=== PATIENT | female | born 1980 | race Two or more races ===

== ENCOUNTER 2017-09-07 09:19 | Emergency (ER) | payer SELFPAY ==
[2017-09-07 09:32] VITALS: RESP 18
[2017-09-07] MEDS ORDERED: DIAZEPAM 10 MG/2 ML SYR IVP ONE (09:48)
[2017-09-07] MEDS ORDERED: ONDANSETRON 4 MG/2 ML VIAL IVP ONE (09:48)
[2017-09-07] MEDS ORDERED: NS 500 ML IV ONE (09:52)
--- NOTE | 2017-09-07 09:52 | EDPHY ---
H & P Stated Complaint: dizziness Time Seen by Provider: 09/07/17 09:36 HPI/ROS: CHIEF COMPLAINT: Dizziness HISTORY OF PRESENT ILLNESS: This is a healthy immunocompetent 37-year-old female who presents with over 12 hr of "dizziness ". She describes the sensation as "the room spinning ". This came on abruptly yesterday when she flopped backwards on to a couch. Any movement of her head brings on this spinning sensation. She had 1 bout of vomiting this morning. She does not have disequilibrium. She denies hearing change, tinnitus, and ear pain. She does not have headache and has not had fever. No numbness or weakness. REVIEW OF SYSTEMS: A ten point review of systems was performed and is negative with the exception of the items mentioned in the HPI. 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 No tobacco products. Occasional alcohol use. General Appearance: Alert. Vital signs reviewed. Eyes: Pupils equal and round, no conjunctival injection, no discharge. Anicteric. ENT, Mouth: Mucous membranes are slightly dry, no oropharyngeal erythema or edema. Neck: No lymphadenopathy, supple. No carotid bruits. Respiratory: Lungs are clear to auscultation; no wheezes, rales, or rhonchi. Cardiovascular: Regular rate and rhythm; no murmur, rub, or gallop. Gastrointestinal: Abdomen is soft and nontender, no masses or organomegaly, bowel sounds normal. Skin: Warm and dry, no rashes on exposed skin, normal color. Back: Nontender to palpation over the thoracolumbar spine. Extremities: No lower extremity edema, no calf tenderness or swelling. Neurological: Alert and oriented. Sitting with her head straight forward, not turning her head side to side. Cranial nerves II through XII are examined and are intact (visual acuity not tested). No nystagmus noted. Strength is 5 over 5 bilaterally with testing of all major motor groups. Sensation is intact to light touch over all 4 extremities. Deep tendon reflexes are 2+ in the biceps and knees bilaterally. Gait is normal. [id number] is performed accurately. Psychiatric: Normal affect. - Personal History LMP (Females 10-55): 22-28 Days Ago Current Tetanus Diphtheria and Acellular Pertussis (TDAP): Yes - Medical/Surgical History Hx Asthma: No Hx Chronic Respiratory Disease: No Hx Diabetes: No Hx Cardiac Disease: No Hx Renal Disease: No Hx Cirrhosis: No Hx Alcoholism: No Hx HIV/AIDS: No Hx Splenectomy or Spleen Trauma: No Other PMH: low thyroid. lip cancer cell removed - Social History Smoking Status: Never smoked Constitutional: Initial Vital Signs Temperature (C) 36.5 C 09/07/17 09:27 Heart Rate 76 09/07/17 09:27 Respiratory Rate 18 09/07/17 09:27 Blood Pressure 113/67 09/07/17 09:27 O2 Sat (%) 97 09/07/17 09:27 O2 Delivery Mode Room Air Allergies/Adverse Reactions: No Known Allergies Allergy (Unverified 09/07/17 09:27) Home Medications: Medication Instructions Recorded Meclizine HCl 25 mg PO Q6-8PRN PRN #10 tablet 09/07/17 Ondansetron Odt [Zofran Odt 4 mg 4 mg PO Q4 PRN #10 tab 09/07/17 (RX)] Medical Decision Making ED Course/Re-evaluation: History and physical suggestive of benign peripheral vertigo. Spinning sensation is brought on by head movement. Normal neurologic exam. I do not suspect a central etiology. She will be given 500 mL normal saline IV, Valium 2 mg IV, and Zofran 4 mg IV. 10:35 a.m.: Patient re-evaluated. She has received the above treatments with good effect. She is no longer feeling vertiginous. She is able to move her head about without difficulty. She feels well enough to return home. Aftercare and danger signs reviewed with her. She is given a referral for primary care and to ENT to use if needed. Differential Diagnosis: Vertigo including but not limited to peripheral causes such as benign positional vertigo, Meniere's disease, viral labyrinthitis and central causes such as CVA, and tumor. - Data Points Medications Given: Discontinued Medications Diazepam (Valium) 2 mg IVP EDNOW ONE Stop: 09/07/17 09:49 Last Admin: 09/07/17 10:00 Dose: 2 mg Sodium Chloride (Ns) 500 mls @ 0 mls/hr IV EDNOW ONE; Wide Open PRN Reason: Protocol Stop: 09/07/17 09:53 Last Admin: 09/07/17 09:59 Dose: 500 mls Ondansetron HCl (Zofran) 4 mg IVP EDNOW ONE Stop: 09/07/17 09:49 Last Admin: 09/07/17 10:00 Dose: 4 mg Departure - Departure Disposition: Home, Routine, Self-Care Clinical Impression: Vertigo Condition: Good Instructions: Vertigo (ED), Benign Paroxysmal Positional Vertigo (ED) Additional Instructions: You can use the meclizine as needed for vertigo. The Zofran wafers treat nausea. Let 1 dissolve under your tongue if you feel sick to your stomach. You can take 1 every 4 hours as needed. I am referring you to a primary care physician, Dr. York, since you are new to the area. You can find information on the Claude maneuver on line. This maneuver is designed to reposition the otoliths that we talked about. You can do this at home. If you have persistent or frequent vertigo I recommend follow up with an ear, nose, and throat specialist. I am referring you to BELÉN Sylvester--if you have persistent or frequent vertigo you should schedule an appointment with her. Referrals: Ashleigh York DO [Doctor of Osteopathy] - As per Instructions Precious Huizar PA [Physician Engine Research Engineer] - As per Instructions Prescriptions: Meclizine HCl 25 mg PO Q6-8PRN PRN #10 tablet PRN Reason: vertigo Ondansetron Odt [Zofran Odt 4 mg (RX)] 4 mg PO Q4 PRN #10 tab PRN Reason: nausea
[2017-09-07 10:53] VITALS: BP 94/60; PULSE 62; TEMP 98.8; O2SAT 100
== END 2017-09-07 10:50 | disposition home or self-care (01) ==
LOC: CED 09:19
DX: R42 Dizziness and giddiness (principal); E86.9 Volume depletion, unspecified; Z85.818 Personal history of malignant neoplasm of other sites of lip, oral cavity, and pharynx
CPT/HCPCS: 96374; J2405